=== PATIENT | male | born 1955 ===

== ENCOUNTER 2018-01-22 07:57 | Day surgery (SDC) | payer OTHER ==
[2018-01-22] MEDS ORDERED: LACTATED RINGERS 1,000 ML IV ONE (08:43)
[2018-01-22] MEDS ORDERED: fentaNYL 250 MCG/5 ML VIAL IVP ONE (09:29)
[2018-01-22] MEDS ORDERED: MIDAZOLAM 2 MG/2 ML VIAL IVP ONE (09:29)
[2018-01-22 10:36] VITALS: BP 111/65
== END 2018-01-22 07:58 | disposition home or self-care (01) ==
LOC: SDS 07:57
PROVIDERS: ATTEND Internal Medicine Gastroenterology
PROC: 0DBN8ZX Excision of Sigmoid Colon, Via Natural or Artificial Opening Endoscopic, Diagnostic (ICD-10-PCS; principal; 2018-01-22 09:30)
DX: Z12.11 Encounter for screening for malignant neoplasm of colon (principal); K63.5 Polyp of colon; K57.30 Diverticulosis of large intestine without perforation or abscess without bleeding
CPT/HCPCS: 45380; J3010; J7120; 88305

== ENCOUNTER 2019-12-15 17:43 | Outpatient (CLI) | payer MEDICARE | END 2019-12-15 17:44 | disposition home or self-care (01) | LOC: COV 17:43 | PROVIDERS: ATTEND Family Medicine | DX: R05 Cough (principal); R06.02 Shortness of breath; R06.2 Wheezing; R53.83 Other fatigue | CPT/HCPCS: 81599 ==

== ENCOUNTER 2022-04-26 10:25 | Emergency (ER) | payer MEDICARE ==
[2022-04-26 10:36] VITALS: BP 129/74
--- NOTE | 2022-04-26 11:52 | Ultrasound Report ---
PROCEDURE: Duplex Ext Veins Left INDICATIONS: L thigh pain and swelling TECHNIQUE: Real-time imaging, as well as color and pulse Doppler interrogation, were performed of the lower extr emity deep veins from the inguinal ligament to the popliteal fossa. COMPARISON: None. FINDINGS: The deep veins are normally compressible, and free of intraluminal thrombus. Color and pu lse Doppler demonstrate normal phasic intraluminal flow. There is normal augmentation response to di stal compression maneuver. Nonocclusive thrombus is visualized within a tortuous segment of the great saphenous vein. There is n o sonographic evidence for extension into the deep system. IMPRESSION: 1. No deep vein thrombosis of the left lower extremity. 2. Nonocclusive thrombus within a midportion of the great saphenous vein. Reviewed by: Em Vallejo MD on 04/26/2022 11:51 AM PDT Approved by: Em Vallejo MD on 04/26/2022 11:51 AM PDT Station ID: [id number]
--- NOTE | 2022-04-26 12:01 | ED Physician Documentation ---
History of Present Illness - Stated complaint Stated Complaint: LEFT THIGH PX - Chief complaint Chief Complaint: Ext Problem - History obtained from History obtained from: Patient - History of Present Illness Timing: How many days ago (several) Pain level max: 3 Pain level now: 3 - Additonal information Additional information: Patient is a 66-year-old male who has a history of varicose veins who presents to the emergency department left thigh pain. Ongoing for the past several days. He states swollen veins, concerned about a blood clot. No chest pain. No shortness of breath. No redness to the leg. Nothing makes it better or worse. Review of Systems Constitutional: denies: Fever, Chills Respiratory: denies: Cough GI: denies: Vomiting, Diarrhea Skin: denies: Rash Musculoskeletal: denies: Neck pain, Back pain Neurologic: denies: Headache PD PAST MEDICAL HISTORY - Past Medical History Cardiovascular: None Respiratory: None Endocrine/Autoimmune: None GI: None : Benign prostate hypertrophy HEENT: None Psych: None Musculoskeletal: Osteoarthritis Derm: None - Past Surgical History Derm: Skin cancer surgery - Present Medications Home Medications: Ambulatory Orders Medication Instructions Recorded Confirmed Tamsulosin HCl [Flomax] 0.4 mg PO DAILY 01/21/18 02/05/20 Hydrocodone/Acetaminophen 1 - 2 each PO Q6H PRN #7 tablet 02/05/20 [Hydrocodon-Acetaminophen 5-325] - Allergies Allergies/Adverse Reactions: Allergies Allergy/AdvReac Type Severity Reaction Status Date / Time No Known Drug Allergies Allergy Verified 04/26/22 10:39 - Social History Does the pt smoke?: No Smoking Status: Never smoker PD ED PE NORMAL - Vitals Vital signs reviewed: Yes - General General: Alert and oriented X 3, No acute distress - HEENT HEENT: Moist mucous membranes - Neck Neck: Supple, no meningeal sign - Cardiac Cardiac: RRR, Strong equal pulses - Respiratory Respiratory: No respiratory distress, Clear bilaterally - Abdomen Abdomen: Soft, Non tender, Non distended - Derm Derm: Warm and dry - Extremities Extremities: No calf tenderness / cord, Other (Enlarged varicose veins, especial ly on the medial aspect of the left mid to distal thigh. Neurovascular intact. No skin changes.) - Neuro Neuro: Alert and oriented X 3 - Psych Psych: Normal mood, Normal affect Results - Vitals Vitals: Vital Signs - 24 hr 04/26/22 10:32 Temperature 36.3 C L Heart Rate 50 L Respiratory 16 Rate Blood Pressure 129/74 O2 Saturation 99 Oxygen O2 Source Room air - Rads (name of study) Duplex ultrasound left lower extremity Radiology: Final report received, EMP read contemporaneously, See rad report PD MEDICAL DECISION MAKING - ED course Complexity details: reviewed results, re-evaluated patient, considered d ifferential, d/w patient ED course: 66-year-old male with superficial thrombophlebitis. No indication for anticoagulation at this time. We will continue anti-inflammatory medications at home and have him follow-up with his doctor for serial ultrasounds. Patient counseled regarding signs and symptoms for which I believe and urgent re- evaluation would be necessary. Patient with good understanding of and agreement to plan and is comfortable going home at this time This document was made in part using voice recognition software. While efforts are made to proofread this document, sound alike and grammatical errors may occur. IMPRESSION: 1. No deep vein thrombosis of the left lower extremity. 2. Nonocclusive thrombus within a midportion of the great saphenous vein. Departure - Departure Disposition: 01 Home, Self Care Clinical Impression: Superficial thrombophlebitis Qualifiers: Superficial thrombophlebitis-Involved body area: lower extremity Laterality: left Qualified Code(s): I80.02 - Phlebitis and thrombophlebitis of superficial vessels of left lower extremity Condition: Good Instructions: ED Phlebitis Superficial Follow-Up: Your,doctor in 1 week [Other] Comments: Please follow-up with your doctor for further care. Please be on anti-inflamm atory medication daily such as Motrin, Aleve or ibuprofen. Please follow-up with your doctor for further care. Please return if you worsen. Your doctor may want to repeat an ultrasound in 1 to 2 weeks to ensure healing. Discharge Date/Time: 04/26/22 12:07
== END 2022-04-26 12:07 | disposition home or self-care (01) ==
LOC: EDBD → ED 10:25 → MERGE 10:25 → ED 12:07
DX: I80.02 Phlebitis and thrombophlebitis of superficial vessels of left lower extremity (principal)
CPT/HCPCS: 99282; 99284

== ENCOUNTER 2023-06-10 15:46 | Outpatient (CLI) | payer MEDICARE ==
--- NOTE | 2023-06-10 20:07 | XRAY Report ---
PROCEDURE: Chest 2 View X-Ray INDICATIONS: DYSPNEA TECHNIQUE: 2 views of the chest were acquired. COMPARISON: None. FINDINGS: Surgical changes and devices: None. Lungs and pleura: No pleural effusions or pneumothorax. Lungs are clear. Mediastinum: Tortuous thoracic aorta is seen. Heart size is normal. Bones and chest wall: No suspicious bony lesions. Overlying soft tissues appear unremarkable. IMPRESSION: No acute cardiopulmonary process. Reviewed by: Gerald Danielle MD on 06/10/2023 8:06 PM PDT Approved by: Gerald Danielle MD on 06/10/2023 8:06 PM PDT Station ID: [id number]
== END 2023-06-10 15:47 | disposition home or self-care (01) ==
LOC: DI.S 15:46
PROVIDERS: ATTEND Registered Nurse
DX: R06.00 Dyspnea, unspecified (principal)